=== PATIENT | female | born 2000 ===

== ENCOUNTER 2021-03-05 17:32 | Emergency (ER) | payer OTHER ==
[2021-03-05 19:58] LABS: BASOPHIL 0.3 % (0-2); EOSINOPHIL 0.8 % (0-5); HCT 38.5 % (37.0-47.0); HGB 12.8 g/dl (12.5-16.0); LYMPHOCYTE 18.1 % (15-48); MCH 30.3 pg (25.0-31.0); MCHC 33.2 g/dL (32.0-36.0); MCV 91.2 fL (78.0-100.0); MONOCYTE 6.9 % (0-12); MPV 11.2 fL (6.0-9.5); NEUTROPHIL 73.5 % (41-80); NRBC 0; PLT 206 K/uL (150-400); RBC 4.22 M/uL (4.20-5.40); RDW 14.6 % (11.5-14.0); WBC 12.8 K/uL (4.0-10.5)
[2021-03-05 20:00] LABS: ALBUMIN 3.8 g/dL (3.4-5.0); BILIRUBIN - TOTAL 0.3 mg/dL (0.2-1.0); BUN/CREAT RATIO (CALC) 24.6 RATIO; CREATININE 0.61 mg/dL (0.51-0.95); GLOBULIN (CALCULATION) 3.3 g/dL; TOTAL PROTEIN 7.1 g/dL (6.4-8.2)
[2021-03-05 20:00] LABS: BILIRUBIN NEGATIVE (NEGATIVE); BLOOD TRACE-INTACT Ery/uL (NEGATIVE); COLOR YELLOW (YELLOW); GLUCOSE (U) NORMAL (NORMAL); LEUKOCYTES 1+ Leu/uL (NEGATIVE); NITRITE NEGATIVE (NEGATIVE); PROTEIN TRACE (LOW) mg/dL (NEGATIVE); SPECIFIC GRAVITY 1.025 (1.001-1.030); UROBILINOGEN 0.2 mg/dL (0.2-1.0)
[2021-03-05 20:07] LABS: CLARITY HAZY (CLEAR); URINARY WBC 20-50
[2021-03-05 20:08] LABS: BACTERIA 2+; MUCOUS TRACE
[2021-03-05] MEDS ORDERED: ZOFRAN4 M1 PO (23:02)
[2021-03-05] MEDS ORDERED: CEFDINIR300 MG PO (23:02)
== END 2021-03-05 23:27 | disposition home or self-care (01) ==
LOC: FER 17:32
PROVIDERS: Physician Assistant
DX: N30.00 Acute cystitis without hematuria (principal); F17.210 Nicotine dependence, cigarettes, uncomplicated
CPT/HCPCS: 36415; 80053; 81001; 85025; J0696; J1885; J7030